=== PATIENT | female | born 1975 | race Caucasian/White ===

== ENCOUNTER → 2018-09-28 | Outpatient (REF) | payer BC ==
[~2018-09-28] MED LIST: IBUP1TAB7 PO; PERC5TAB12 PO
[2018-10-02 10:22] LABS: HPV LOW VOL RFLX Negative (Negative)
== END ==
LOC: M LAB REF 17:29
PROVIDERS: ATTEND Advanced Practice Midwife
DX: Z12.4 Encounter for screening for malignant neoplasm of cervix (principal)
CPT/HCPCS: 87624; G0123

== ENCOUNTER → 2019-02-15 | Outpatient (REF) | payer BC ==
[2019-02-15 16:27] LABS: HEMATOCRIT 40.9 % (36.0-47.0); HEMOGLOBIN 13.6 g/dl (12.0-15.5); MEAN CORPUSCULAR HEMOGLOBIN 32.5 pg (27.0-33.0); MEAN CORPUSCULAR HGB CONC 33.3 g/dl (32.0-36.5); MEAN CORPUSCULAR VOLUME 97.8 fl (80.0-96.0); PLATELET COUNT, AUTOMATED 221 10^3/uL (150-450); RED BLOOD COUNT 4.18 10^6/uL (4.00-5.40); WHITE BLOOD COUNT 8.8 10^3/uL (4.0-10.0)
[2019-02-15 16:54] LABS: ALBUMIN 3.7 GM/DL (3.2-5.2); ALT/SGPT 19 U/L (12-78); BILIRUBIN,TOTAL 0.2 MG/DL (0.2-1.0); BLOOD UREA NITROGEN 13 MG/DL (7-18); CALCIUM LEVEL 8.6 MG/DL (8.5-10.1); CARBON DIOXIDE LEVEL 28 MEQ/L (21-32); CHLORIDE LEVEL 106 MEQ/L (98-107); CHOLESTEROL LEVEL 158 MG/DL (<200); CREATININE FOR GFR 0.75 MG/DL (0.55-1.30); FREE T4 0.86 NG/DL (0.76-1.46); GLOMERULAR FILTRATION RATE > 60.0 (>58); GLUCOSE, FASTING 82 MG/DL (70-100); HDL CHOLESTEROL 65 MG/DL (>40); LDL CHOLESTEROL 79 MG/DL (<100); NON-HDL-C 93 MG/DL; POTASSIUM SERUM 3.8 MEQ/L (3.5-5.1); SODIUM LEVEL 140 MEQ/L (136-145); TOTAL PROTEIN 6.6 GM/DL (6.4-8.2); TRIGLYCERIDES LEVEL 68 MG/DL (<150)
== END ==
LOC: M SFHCADAM 14:33
PROVIDERS: ATTEND Family Medicine
DX: J01.90 Acute sinusitis, unspecified (principal); Z13.220 Encounter for screening for lipoid disorders; Z13.29 Encounter for screening for other suspected endocrine disorder

== ENCOUNTER → 2019-07-07 | Outpatient (CLI) | payer BC ==
--- NOTE | 2019-07-07 17:41 | REP ---
Digital diagnostic bilateral mammography with CAD, 3-D tomography, and focused bilateral sonography: History: Bilateral breast lumps. Present times the last few months. Comparison mammography February 14, 2016. Findings: Breast parenchyma is heterogeneously dense in a pattern which inhibits the sensitivity of mammography. Skin markers are affixed to the skin at the site of the palpable lumps. These project in the upper outer quadrant of each breast. Routine views are augmented by magnified focal spot compression views and 3-D tomography. On the left, there is a subdermal well-circumscribed relatively low density lesion suggestive of a sebaceous cyst at the site of the palpable lump. On the right, there is no mammographic correlate to the palpable lump. No mass, architectural distortion or microcalcification is observed mammographically on either side. Sonographic findings: Scanning is performed at the palpable lump sites, 9 o'clock on the right and 1 o'clock position on the left. Right breast sonography at 9 o'clock demonstrates a 0.3 x 0.3 x 0.2 cm cyst and a 0.3 x 0.3 x 0.3 cm cyst at the 9 o'clock position 2 cm from the nipple. Heterogeneous fibroglandular background echotexture is seen. No mass or acoustic shadowing is seen. The 3 x 3 x 3 mm cyst is intradermal suggesting a sebaceous cyst. The other cyst is in the breast parenchyma. Left breast sonography in the 1 o'clock position demonstrates an intradermal cyst measuring 0.5 x 0.5 x 0.3 cm, again intradermal corresponding to the mammographic opacity and the palpable lump. This is consistent with a sebaceous cyst. There is also an oval-shaped parenchymal cyst at the 1 o'clock position in the left breast measuring 0.6 x 0.5 x 0.3 cm. No suspicious sonographic findings. Impression: BIRADS category 2 benign findings. There are cystic lesions that appear to be intradermal at the site of each palpable lump one on each side. These are suggestive of sebaceous cysts. This should be correlated clinically. No sonographically or mammographically suspicious finding. Clinical follow-up is advised. BIRADS 2: BI-RADS/ACR category 2 mammogram. Benign Findings. This mammogram was interpreted with the aid of an FDA-approved computer-aided detection system. The patient states she had a clinical breast exam in June 2019. The patient letter being requested is m# 2 dense .
== END ==
LOC: M WHC 14:17
PROVIDERS: ATTEND Advanced Practice Midwife
DX: N60.09 Solitary cyst of unspecified breast (principal)
CPT/HCPCS: 76642; 77066; G0279

== ENCOUNTER → 2019-08-24 | Outpatient (REF) | payer BC | LOC: M SFHCWAGY 18:21 | PROVIDERS: ATTEND Surgery | DX: N63.0 Unspecified lump in unspecified breast (principal) ==

== ENCOUNTER → 2020-10-05 | Outpatient (REF) | payer BC ==
[2020-10-05 17:38] LABS: AMORPHOUS SEDIMENT SMALL (NEGATIVE); APPEARANCE, URINE HAZY (CLEAR); BACTERIA, URINE AUTO 1+ (NEGATIVE); BILIRUBIN, URINE AUTO NEGATIVE (NEGATIVE); BLOOD, URINE BLOOD NEGATIVE (NEGATIVE); COLOR, URINE YELLOW (YELLOW); GLUCOSE, URINE (UA) AUTO NEGATIVE (NEGATIVE); KETONE, URINE AUTO NEGATIVE (NEGATIVE); LEUKOCYTE ESTERASE, URINE AUTO NEGATIVE (NEGATIVE); NITRITE, URINE AUTO NEGATIVE (NEGATIVE); PROTEIN, URINE AUTO NEGATIVE (NEGATIVE); RBC, URINE AUTO 0 /HPF (0-3); SPECIFIC GRAVITY URINE AUTO 1.002 (1.002-1.035); SQUAMOUS EPITHELIAL CELL UR AU 1 /HPF (0-6); UROBILINOGEN, URINE AUTO 0.2 mg/dL (0.0-2.0); WBC, URINE AUTO 2 /HPF (0-3)
== END ==
LOC: M LAB REF 16:16
PROVIDERS: ATTEND Physician Assistant
DX: N39.0 Urinary tract infection, site not specified (principal)

== ENCOUNTER → 2020-10-17 | Outpatient (CLI) | payer BC ==
--- NOTE | 2020-10-17 08:28 | REP ---
INDICATION: R10.2 PELVIC PAIN. COMPARISON: Comparison study July 15, 2012.. TECHNIQUE: Transabdominal and transvaginal scanning were performed. FINDINGS: Uterine dimensions are normal at 9.9 x 4.6 x 5.4 cm. Endometrial echo is are 0.4 cm thick and centrally placed. No free fluid is seen in the cul-de-sac. Visualized bladder chin are smooth. Exam quality is inhibited somewhat by patient body habitus. The right ovary has dimensions of 2.3 x 3.1 x 3.2 cm. It's Doppler flow is normal with a resistive index of 0.59. There is a hypoechoic zone 2.0 cm in greatest diameter in the right ovary consistent with a complex cyst. The left ovary dimensions are normal as well at 2.1 x 1.2 x 1.8 cm. It's Doppler flow was normal with resistive index of 0.71. The left ovary is only visualized transabdominally. There is a trace of cul-de-sac fluid consistent with physiologic fluid. IMPRESSION: 2.0 cm complex follicle cyst right ovary. Otherwise negative.. <Electronically signed by Lamont Ramirez > 10/17/20 [id number]
== END ==
LOC: M WHC 07:34
PROVIDERS: ATTEND Advanced Practice Midwife
DX: R10.2 Pelvic and perineal pain (principal)

== ENCOUNTER → 2020-11-12 | Outpatient (REF) | payer BC | LOC: M SFHCWAGY 18:28 | PROVIDERS: ATTEND Advanced Practice Midwife | DX: Z12.4 Encounter for screening for malignant neoplasm of cervix (principal) | CPT/HCPCS: 87624; G0123 ==

== ENCOUNTER → 2021-01-04 | Outpatient (CLI) | payer BC ==
[~2021-01-04] MED LIST changes: +ISIB1TAB
== END ==
LOC: M LABSMTC 10:20
PROVIDERS: ATTEND Anesthesiology
DX: Z01.812 Encounter for preprocedural laboratory examination (principal); Z20.822 Contact with and (suspected) exposure to COVID-19

== ENCOUNTER 2021-01-09 06:41 | Day surgery (SDC) | payer BC ==
[~2021-01-09] VITALS: Ht 165.1 cm; Wt 66.7 kg
[~2021-01-09 06:41] MED LIST changes: +NS 1,000 ML IV ONE
[2021-01-09] MEDS ORDERED: propofoL 200 MG/20 ML VIAL As Ordered ONE ×2 (07:37→07:38)
[2021-01-09 08:10] VITALS: BP 105/68
== END 2021-01-09 08:12 | disposition home or self-care (01) ==
LOC: M OPP 06:41
PROVIDERS: ATTEND Surgery
DX: R19.4 Change in bowel habit (principal); Z80.0 Family history of malignant neoplasm of digestive organs; K64.0 First degree hemorrhoids; Z79.899 Other long term (current) drug therapy

== ENCOUNTER → 2021-01-22 | Outpatient (CLI) | payer BC ==
[~2021-01-22] MED LIST changes: -NS 1,000 ML IV ONE
--- NOTE | 2021-01-22 08:16 | REP ---
INDICATION: BREAST CANCER SCREEN BY MAMMOGRAM. COMPARISON: Multiple TECHNIQUE: Digital screening mammography was carried out bilaterally in the CC and MLO projections using both 2D and 3D modalities and compared to the prior exams. By history, the patient has no complaints of a palpable breast abnormality or other significant breast complaints. FINDINGS: The breasts are unchanged in size and shape. Once again, dense heterogenous fibroglandular elements are seen bilaterally to such a degree that the sensitivity of the mammogram in detecting cancer is decreased. In the lower outer quadrant of the left breast there is a potential phillip asymmetric density. No other suspicious features are seen in either breast. There are no suspicious calcifications. There is no skin thickening or nipple retraction. The Volpara volumetric breast density pattern is C. IMPRESSION: BIRADS/ACR category 0 mammogram. Potential phillip density seen in the left breast as described above and for which diagnostic digital DBT spot compression views are recommended in the CC and MLO projections along with diagnostic ultrasonography if necessary. This patient's Tyrer-Cuzick lifetime breast cancer risk assessment score is 10.8%. This mammogram was interpreted with the aid of an FDA-approved computer-aided detection system. The patient states she had a clinical breast exam in October 2020. The patient letter being requested is M0. RECOMMENDATION: As above <Electronically signed by Kulwant Mclain > 01/22/21 [id number]
== END ==
LOC: M WHC 07:30
PROVIDERS: ATTEND Advanced Practice Midwife
DX: Z12.31 Encounter for screening mammogram for malignant neoplasm of breast (principal)

== ENCOUNTER → 2021-02-20 | Outpatient (CLI) | payer BC ==
--- NOTE | 2021-02-21 13:24 | REP ---
INDICATION: LEFT BREAST ADD VIEWS. Focal asymmetry COMPARISON: Screening mammogram, 01/22/2021 TECHNIQUE: 3D focal compression spot views of the left breast in the CC and MLO orientations were obtained. Targeted ultrasound evaluation of the left breast was performed. FINDINGS: The Volpara volumetric breast density pattern is C, the breast is heterogeneously dense, which may obscure small masses. The focal asymmetry, seen in the middle 3rd of the left breast below and lateral to the nipple in the lower outer quadrant, is not clearly identified on the additional view mammogram. Left breast ultrasound: 5 o'clock, 6 cm from the nipple, 12 x 11 x 6 mm, simple cyst. IMPRESSION: BIRADS/ACR category 2: Benign finding. This mammogram was interpreted with the aid of an FDA-approved computer-aided detection system. The patient letter being requested is M2. RECOMMENDATION: Repeat screening mammography recommended 1 year (for women over 40). <Electronically signed by Alonso Mreaz > 02/21/21 [id number]
== END ==
LOC: M WHC 14:51
PROVIDERS: ATTEND Advanced Practice Midwife
DX: R92.8 Other abnormal and inconclusive findings on diagnostic imaging of breast (principal); N60.02 Solitary cyst of left breast
CPT/HCPCS: 76642; 77065; G0279

== ENCOUNTER → 2021-03-29 | Outpatient (CLI) | payer BC ==
[2021-03-29 13:28] LABS: HEMATOCRIT 43.1 % (36.0-47.0); HEMOGLOBIN 14.4 g/dl (12.0-15.5); MEAN CORPUSCULAR HGB CONC 33.4 g/dl (32.0-36.5); MEAN CORPUSCULAR VOLUME 98.6 fl (80.0-96.0); PLATELET COUNT, AUTOMATED 254 10^3/uL (150-450); RED BLOOD COUNT 4.37 10^6/uL (4.00-5.40); WHITE BLOOD COUNT 7.7 10^3/uL (4.0-10.0)
[2021-03-29 13:47] LABS: HEMOGLOBIN A1c 4.9 %
[2021-03-29 13:58] LABS: ALBUMIN 3.5 GM/DL (3.2-5.2); ALT/SGPT 19 U/L (12-78); BILIRUBIN,TOTAL 0.3 MG/DL (0.2-1.0); BLOOD UREA NITROGEN 12 MG/DL (7-18); CALCIUM LEVEL 9.7 MG/DL (8.5-10.1); CARBON DIOXIDE LEVEL 27 MEQ/L (21-32); CHLORIDE LEVEL 107 MEQ/L (98-107); CHOLESTEROL LEVEL 246 MG/DL (<200); CHOLESTEROL RISK RATIO 3.113 (<5); CREATININE FOR GFR 0.82 MG/DL (0.55-1.30); FREE T4 1.08 NG/DL (0.76-1.46); GLOMERULAR FILTRATION RATE > 60.0 (>58); GLUCOSE, FASTING 87 MG/DL (70-100); HDL CHOLESTEROL 79 MG/DL (>40); LDL CHOLESTEROL 148 MG/DL (<100); NON-HDL-C 167 MG/DL; POTASSIUM SERUM 4.5 MEQ/L (3.5-5.1); SODIUM LEVEL 140 MEQ/L (136-145); TOTAL PROTEIN 7.1 GM/DL (6.4-8.2); TRIGLYCERIDES LEVEL 94 MG/DL (<150)
--- NOTE | 2021-03-30 16:25 | REP ---
INDICATION: ENCOUNTER FOR SCREENING FOR DIABETES MELLITUS COMPARISON: None. TECHNIQUE: PA and lateral. FINDINGS: The mediastinum and cardiac silhouette are normal. The lung smith are clear and without acute consolidation, effusion, or pneumothorax. The skeletal structures are intact and normal. IMPRESSION: No acute cardiopulmonary process. <Electronically signed by En Ruelas > 03/30/21 1337
== END ==
LOC: M PLAIMG 09:42
PROVIDERS: ATTEND Family Medicine
DX: Z13.1 Encounter for screening for diabetes mellitus (principal); R05.3 Chronic cough; Z13.29 Encounter for screening for other suspected endocrine disorder; R06.02 Shortness of breath; Z13.220 Encounter for screening for lipoid disorders

== ENCOUNTER → 2021-04-15 | Outpatient (CLI) | payer BC | LOC: M CARPUL 07:59 | PROVIDERS: ATTEND Family Medicine | DX: R06.02 Shortness of breath (principal); R05.3 Chronic cough ==

== ENCOUNTER → 2021-04-18 | Outpatient (CLI) | payer BC ==
[~2021-04-18] MED LIST changes: +METHACHOLINE KIT (J7674) INH ONE
--- NOTE | 2021-04-18 08:41 | PFTRPT ---
Site: [facility], [address], [place], [address] ID: [id number] Name: JAS GARCIA Visit Date: 04/18/2021 Second ID: [id number] Referring Doctor: MD Randall Joseph Reviewing Doctor: Murphy Giles MD Truck Unloader: Eloy WHYTE RRT Age: 45 : 1975 Sex: Female Race: Height: 65.00 Inches Weight: 145.00 Lbs BSA: 1.73 Order IDs: [id number] Requested Test(s): <RESP-PFT.METH CHAL> Diagnosis: R06.2 of albuterol for post bronchodilator. Review Status: Not Reviewed Pre-Bronch Post-Bronch Pred Actual %Pred Actual %Chng SPIROMETRY FVC (L) 3.72 3.15 84 3.11 FEV1 (L) 2.97 2.70 90 2.57 -4 FEV1/FVC (%) 81 86 106 82 -3 FEF 25% (L/sec) 5.40 5.33 98 4.98 -6 FEF 50% (L/sec) 4.01 4.02 100 3.70 -7 FEF 75% (L/sec) 1.51 1.44 95 1.00 -30 FEF 25-75% (L/sec) 2.93 3.23 110 2.50 -22 FEF Max (L/sec) 6.98 5.33 76 5.06 -5 FIVC (L) 3.25 3.07 -5 FIF 50% (L/sec) 3.69 4.00 108 3.72 -6 FIF Max (L/sec) 4.02 3.90 -2 Expiratory Time (sec) 6.95 6.09 -12 Back Extrap Vol (L) 0.10 0.08 -20 Time To FEFmax (sec) 0.154 0.122 -20
== END ==
LOC: M CARPUL 07:47
PROVIDERS: ATTEND Physician Assistant
DX: R06.2 Wheezing (principal); R05.3 Chronic cough
CPT/HCPCS: 94070; J7674

== ENCOUNTER 2021-12-24 07:25 | Emergency (ER) | payer BC ==
[~2021-12-24] VITALS: Ht 165.1 cm; Wt 71.5 kg
[2021-12-24 07:25] VITALS: BP 152/81
== END 2021-12-24 09:20 | disposition left against medical advice (07) ==
LOC: M ED 07:25
DX: Z53.21 Procedure and treatment not carried out due to patient leaving prior to being seen by health care provider (principal)

== ENCOUNTER → 2021-12-24 | Outpatient (CLI) | payer BC ==
[~2021-12-24] MED LIST changes: -METHACHOLINE KIT (J7674) INH ONE
== END ==
LOC: M WUC 10:02
PROVIDERS: ATTEND Physician Assistant
DX: S13.4XXA Sprain of ligaments of cervical spine, initial encounter (principal); S23.3XXA Sprain of ligaments of thoracic spine, initial encounter

== ENCOUNTER → 2022-01-13 | Outpatient (CLI) | payer BC | LOC: M PLAIMG 07:11 | PROVIDERS: ATTEND Physician Assistant Surgical | DX: M50.30 Other cervical disc degeneration, unspecified cervical region (principal) ==

== ENCOUNTER 2023-04-30 07:32 | Emergency (ER) | payer BC ==
[~2023-04-30] VITALS: Ht 165.1 cm; Wt 69.0 kg
[2023-04-30 07:33] VITALS: BP 148/88; TEMP 98; O2SAT 100
== END 2023-04-30 10:42 | disposition left against medical advice (07) ==
LOC: M ED 07:32
DX: Z53.21 Procedure and treatment not carried out due to patient leaving prior to being seen by health care provider (principal)

== ENCOUNTER → 2023-12-02 | Outpatient (REF) | payer BC ==
[2023-12-02 19:24] LABS: VITAMIN B12 LEVEL 681 PG/ML (211-911)
[2023-12-02 19:25] LABS: C REACTIVE PROTEIN QUANTITATIV < 0.40 MG/DL (<1.0); FREE T4 1.15 NG/DL (0.89-1.76)
[2023-12-02 19:26] LABS: HEMOGLOBIN 14.5 g/dl (12.0-15.5); MEAN CORPUSCULAR HGB CONC 33.7 g/dl (32.0-36.5); MEAN CORPUSCULAR VOLUME 97.7 fl (80.0-96.0); PLATELET COUNT, AUTOMATED 223 10^3/uL (150-450); THYROID STIMULATING HORMONE 1.804 uIU/ML (0.55-4.78); WHITE BLOOD COUNT 7.9 10^3/uL (4.0-10.0)
[2023-12-02 19:27] LABS: ALKALINE PHOSPHATASE 66 U/L (46-116); ALT/SGPT 18 U/L (7.0-40); AST/SGOT 12 U/L (<34); BILIRUBIN,TOTAL 0.3 MG/DL (0.3-1.2); BLOOD UREA NITROGEN 11 MG/DL (9-23); CALCIUM LEVEL 9.3 MG/DL (8.5-10.1); CARBON DIOXIDE LEVEL 26 MMOL/L (20-31); CHLORIDE LEVEL 106 MMOL/L (98-107); CREATININE FOR GFR 0.78 MG/DL (0.55-1.30); FOLATE 20.59 NG/ML (>5.4); GLOMERULAR FILTRATION RATE > 60.0 (>58); GLUCOSE, FASTING 95 MG/DL (60-100); SODIUM LEVEL 139 MMOL/L (136-145); TOTAL PROTEIN 7.1 G/DL (5.7-8.2)
[2023-12-02 19:51] LABS: HEMOGLOBIN A1c 4.8 % (4.0-6.0)
== END ==
LOC: M SFHCADAM 14:41
PROVIDERS: ATTEND Family Medicine
DX: R20.2 Paresthesia of skin (principal)

== ENCOUNTER → 2023-12-08 | Outpatient (REF) | payer BC ==
[2023-12-10 14:43] LABS: HPV APTIMA Not Detected (Not Detected)
== END ==
LOC: M SFHCWAGY 14:55
PROVIDERS: ATTEND Advanced Practice Midwife
DX: Z12.4 Encounter for screening for malignant neoplasm of cervix (principal)
CPT/HCPCS: 87624; G0123

== ENCOUNTER → 2023-12-15 | Outpatient (CLI) | payer BC | LOC: M SOG 07:54 | PROVIDERS: ATTEND Physician Assistant | DX: M25.512 Pain in left shoulder (principal) ==

== ENCOUNTER → 2024-01-04 | Outpatient (CLI) | payer BC | LOC: M WHC 08:09 | PROVIDERS: ATTEND Advanced Practice Midwife | DX: N94.6 Dysmenorrhea, unspecified (principal); Z12.31 Encounter for screening mammogram for malignant neoplasm of breast ==

== ENCOUNTER 2024-01-20 09:59 | Outpatient (RCR) | payer BC | END 2024-01-25 | LOC: M PT 09:59 | PROVIDERS: ATTEND Physician Assistant | DX: S46.012A Strain of muscle(s) and tendon(s) of the rotator cuff of left shoulder, initial encounter (principal) ==

== ENCOUNTER → 2024-02-10 | Outpatient (REF) | payer BC ==
[2024-02-11 15:42] LABS: ANA SCREEN, IFA NEGATIVE (NEGATIVE)
== END ==
LOC: M SFHCADAM 09:34
PROVIDERS: ATTEND Family Medicine
DX: M25.50 Pain in unspecified joint (principal)

== ENCOUNTER 2024-02-17 10:45 | Outpatient (RCR) | payer BC | END 2024-02-25 | LOC: M PT 10:45 | PROVIDERS: ATTEND Physician Assistant | DX: S46.012A Strain of muscle(s) and tendon(s) of the rotator cuff of left shoulder, initial encounter (principal) ==

== ENCOUNTER → 2024-02-29 | Outpatient (CLI) | payer BC | LOC: M WHC 09:07 | PROVIDERS: ATTEND Advanced Practice Midwife | DX: N83.202 Unspecified ovarian cyst, left side (principal); N83.201 Unspecified ovarian cyst, right side; R93.89 Abnormal findings on diagnostic imaging of other specified body structures ==

== ENCOUNTER 2024-05-11 06:12 | Day surgery (SDC) | payer BC ==
[~2024-05-11] VITALS: Ht 165.1 cm; Wt 69.3 kg
[2024-05-11] MEDS ORDERED: NS (Normal Saline) 0.9% 1,000 ML IV SCH (06:35)
[2024-05-11] MEDS ORDERED: ACETAMINOPHEN 1000MG/100ML IV BAG As Ordered ONE (07:02)
[2024-05-11] MEDS ORDERED: LIDOCAINE 2% INJ 100 MG/5 ML SYRINGE As Ordered ONE (07:02)
[2024-05-11] MEDS ORDERED: propofoL 200 MG/20 ML VIAL As Ordered ONE (07:02)
[2024-05-11] MEDS ORDERED: dexmedeTOMIDine (4MCG/ML)200MCG/50ML BTL (PRECEDEX) As Ordered ONE (07:02)
[2024-05-11] MEDS ORDERED: ONDANSETRON 4MG 2ML VIAL As Ordered ONE (07:02)
[2024-05-11] MEDS ORDERED: fentaNYL 100 MCG/2 ML INJECTION As Ordered ONE (07:02)
[2024-05-11] MEDS ORDERED: MIDAZOLAM INJ 2MG/2ML VIAL As Ordered ONE (07:03)
[2024-05-11] MEDS ORDERED: LIDOCAINE 2% 100MG/5ML SDV (FOR ANES.) As Ordered ONE (07:09)
[2024-05-11] MEDS: ceFAZolin SOD 2 GM in IV 1 EA IV ONE (07:35)
[2024-05-11] MEDS: LIDOCAINE 1% SDV 30ML VIAL As Ordered ONE (07:52)
[2024-05-11] MEDS ORDERED: KETOROLAC 60MG 2ML VIAL As Ordered ONE (08:04)
[2024-05-11 08:20] VITALS: BP 115/63; TEMP 97.3; O2SAT 93
== END 2024-05-11 09:00 | disposition home or self-care (01) ==
LOC: M SDC 06:12
PROVIDERS: ATTEND Podiatrist Foot & Ankle Surgery
DX: M20.5X2 Other deformities of toe(s) (acquired), left foot (principal); M25.775 Osteophyte, left foot; M77.42 Metatarsalgia, left foot; J45.909 Unspecified asthma, uncomplicated; Z79.899 Other long term (current) drug therapy; Z91.018 Allergy to other foods
CPT/HCPCS: 28289; J0131; J0665; J0690; J1100; J1885; J2250; J2405; J3010

== ENCOUNTER 2024-08-17 10:30 | Outpatient (RCR) | payer BC | END 2024-08-24 | LOC: M PT 10:30 | PROVIDERS: ATTEND Podiatrist Foot & Ankle Surgery | DX: Z48.89 Encounter for other specified surgical aftercare (principal); Z98.890 Other specified postprocedural states ==

== ENCOUNTER → 2024-09-01 | Outpatient (CLI) | payer BC | LOC: M WHC 10:05 | PROVIDERS: ATTEND Advanced Practice Midwife | DX: N83.201 Unspecified ovarian cyst, right side (principal); N83.202 Unspecified ovarian cyst, left side ==

== ENCOUNTER → 2024-09-14 | Outpatient (REF) | payer BC ==
[2024-09-14 21:47] LABS: APPEARANCE, URINE CLEAR (CLEAR); BACTERIA, URINE AUTO NEGATIVE (NEGATIVE); BILIRUBIN, URINE AUTO NEGATIVE (NEGATIVE); BLOOD, URINE BLOOD NEGATIVE (NEGATIVE); COLOR, URINE YELLOW (YELLOW); GLUCOSE, URINE (UA) AUTO NEGATIVE (NEGATIVE); KETONE, URINE AUTO NEGATIVE (NEGATIVE); LEUKOCYTE ESTERASE, URINE AUTO NEGATIVE (NEGATIVE); NITRITE, URINE AUTO NEGATIVE (NEGATIVE); PROTEIN, URINE AUTO NEGATIVE (NEGATIVE); RBC, URINE AUTO 3 /HPF (0-3); SPECIFIC GRAVITY URINE AUTO 1.013 (1.002-1.035); SQUAMOUS EPITHELIAL CELL UR AU 1 /HPF (0-6); UROBILINOGEN, URINE AUTO 0.2 mg/dL (0.0-2.0); WBC, URINE AUTO 0 /HPF (0-3)
== END ==
LOC: M LAB REF 21:18
PROVIDERS: ATTEND Physician Assistant
DX: N39.0 Urinary tract infection, site not specified (principal)

== ENCOUNTER → 2024-10-31 | Outpatient (REF) | payer BC | LOC: M SFHCWAGY 15:51 | PROVIDERS: ATTEND Advanced Practice Midwife | DX: N84.3 Polyp of vulva (principal) ==

== ENCOUNTER → 2024-12-14 | Outpatient (CLI) | payer BC ==
[2024-12-14 15:09] LABS: PLATELET COUNT, AUTOMATED 236 10^3/uL (150-450)
[2024-12-14 15:44] LABS: ALT/SGPT 19.0 U/L (7.0-40); AST/SGOT 21.0 U/L (<34); CALCIUM LEVEL 9.5 MG/DL (8.5-10.1); CARBON DIOXIDE LEVEL 31.0 MMOL/L (20-31); CHLORIDE LEVEL 102.0 MMOL/L (98-107); CHOLESTEROL LEVEL 195.0 MG/DL (<200); CHOLESTEROL RISK RATIO 3.11 (<5); CREATININE FOR GFR 0.94 MG/DL (0.55-1.30); GLOMERULAR FILTRATION RATE 73.9 (>51); LDL CHOLESTEROL 115.4 MG/DL (<100); NON-HDL-C 132.4 MG/DL; POTASSIUM SERUM 4.3 MMOL/L (3.5-5.1); SODIUM LEVEL 140.0 MMOL/L (136-145); TRIGLYCERIDES LEVEL 85.0 MG/DL (<150)
[2024-12-14 15:46] LABS: FREE T4 1.22 NG/DL (0.89-1.76)
[2024-12-14 16:19] LABS: ESTIMATED AVERAGE GLUCOSE 97.0 MG/DL (60-110)
== END ==
LOC: M LAB 14:49
PROVIDERS: ATTEND Family Medicine
DX: F41.1 Generalized anxiety disorder (principal); Z13.1 Encounter for screening for diabetes mellitus; E78.5 Hyperlipidemia, unspecified

== ENCOUNTER → 2024-12-29 | Outpatient (CLI) | payer BC | LOC: M SOG 06:46 | PROVIDERS: ATTEND Neuromusculoskeletal Medicine, Sports Medicine | DX: M25.562 Pain in left knee (principal) ==

== ENCOUNTER → 2025-01-20 | Outpatient (CLI) | payer BC | LOC: M WHC 10:03 | PROVIDERS: ATTEND Student in an Organized Health Care Education/Training Program | DX: Z12.31 Encounter for screening mammogram for malignant neoplasm of breast (principal); R92.333 Mammographic heterogeneous density, bilateral breasts ==

== ENCOUNTER → 2025-01-20 | Outpatient (REF) | payer BC | LOC: M PLALAB 09:52 | PROVIDERS: ATTEND Student in an Organized Health Care Education/Training Program | DX: Z01.419 Encounter for gynecological examination (general) (routine) without abnormal findings (principal) ==

== ENCOUNTER → 2025-03-15 | Outpatient (CLI) | payer BC | LOC: M RAD 07:04 | PROVIDERS: ATTEND Neuromusculoskeletal Medicine, Sports Medicine | DX: M17.12 Unilateral primary osteoarthritis, left knee (principal); S83.282A Other tear of lateral meniscus, current injury, left knee, initial encounter; W18.30XA Fall on same level, unspecified, initial encounter; Y92.009 Unspecified place in unspecified non-institutional (private) residence as the place of occurrence of the external cause ==